=== PATIENT | female | born 1965 | race Caucasian/White ===

== ENCOUNTER → 2016-09-06 | Outpatient (CLI) | payer BC ==
[~2016-09-06] MED LIST: CIPRO 500MG TA500 MG PO; LEXAPRO20 MG PO; MOTRIN 600600 MG/TAB PO; TYLENOL 500MG500 MG PO; XANAX 0.5MG0.5 MG PO
== END ==
LOC: BHSO 15:17
DX: F33.42 Major depressive disorder, recurrent, in full remission (principal)

== ENCOUNTER → 2016-11-20 | Outpatient (CLI) | payer BC ==
[2016-11-20 17:25] LABS: BASO # 0.1 (0.0-0.2); BASO % 1.3 % (0.0-2.0); EOS # 0.2 (0.0-0.7); EOS % 3.8 % (0-4.0); GRAN # 3.7 (1.4-6.5); GRAN % 60.9 % (42.2-75.2); HEMOGLOBIN 13.6 g/dl (12.5-16.0); LYMPH # 1.6 (1.2-3.4); LYMPH % 25.4 % (20.0-51.0); MEAN CELL VOLUME 91 fl (80.0-100.0); MEAN CORPUSCULAR HEMOGLOBIN 32 pg (27.0-31.0); MEAN CORPUSCULAR HGB CONC 36 g/dl (33.0-37.0); MEAN PLATELET VOLUME 9.7 fl (7.4-10.4); MONO # 0.5 (0.1-0.6); MONO % 8.3 % (1.7-9.3); PLATELET COUNT 349 K/mm3 (130-400); REDCELL DISTRIBUTION WIDTH-CV 12.2 % (11.5-14.5); WHITE BLOOD COUNT 6.1 K/mm3 (4.8-10.8)
[2016-11-20 17:31] LABS: ALBUMIN 4.3 gm/dL (3.5-5.0); BILIRUBIN,TOTAL 0.4 mg/dL (0.0-1.0); CALCIUM 9.2 mg/dL (8.4-10.2); CREATININE, serum 0.72 mg/dL (0.52-1.25); POTASSIUM 3.8 mmol/L (3.4-5.0); TOTAL PROTEIN 7.5 gm/dL (6.4-8.2)
[2016-11-20 19:04] LABS: CHLAMYDIA/TRACH by PCR Female NOT DETECTED; NEISSERIA GON by PCR Female NOT DETECTED
== END ==
LOC: COL.LAB 15:52
PROVIDERS: Family Medicine
DX: Z01.419 Encounter for gynecological examination (general) (routine) without abnormal findings (principal)

== ENCOUNTER → 2016-11-26 | Outpatient (CLI) | payer BC ==
[2016-11-26 12:24] LABS: PH 9 (5-8); SQUAMOUS EPITHELIAL 0-2 /hpf; URINE APPEARANCE Cloudy; URINE BACTERIA None Seen /hpf; URINE BILIRUBIN Negative (NEGATIVE); URINE BLOOD 2+ (NEGATIVE); URINE COLOR Yellow; URINE GLUCOSE Negative (NEGATIVE); URINE KETONE Negative (NEGATIVE); URINE RBC >50 /hpf; URINE UROBILINOGEN Negative (NEGATIVE); URINE WBC >50 /hpf
== END ==
LOC: COL.LAB 11:42
PROVIDERS: Family Medicine
DX: Z87.440 Personal history of urinary (tract) infections (principal)

== ENCOUNTER → 2016-11-30 | Outpatient (CLI) | payer BC | LOC: BHSO 15:40 | DX: F33.42 Major depressive disorder, recurrent, in full remission (principal) ==

== ENCOUNTER → 2017-06-03 | Outpatient (CLI) | payer BC | LOC: BHSO 13:39 | DX: F33.42 Major depressive disorder, recurrent, in full remission (principal) | CPT/HCPCS: G0463 ==

== ENCOUNTER → 2017-07-30 | Outpatient (CLI) | payer BC | LOC: BHSO 14:41 | DX: F33.1 Major depressive disorder, recurrent, moderate (principal) | CPT/HCPCS: G0463 ==

== ENCOUNTER → 2017-09-26 | Outpatient (CLI) | payer BC | LOC: BHSO 16:26 | DX: F33.42 Major depressive disorder, recurrent, in full remission (principal) | CPT/HCPCS: G0463 ==

== ENCOUNTER → 2017-10-08 | Outpatient (CLI) | payer BC ==
[2017-10-08 16:14] LABS: BASO # 0.1 (0.0-0.2); BASO % 0.7 % (0.0-2.0); BILIRUBIN,TOTAL 0.6 mg/dL (0.0-1.0); CALCIUM 9.2 mg/dL (8.4-10.2); CHOLESTEROL RISK RATIO 4.2; CREATININE, serum 0.72 mg/dL (0.52-1.25); EOS # 0.3 (0.0-0.7); EOS % 4.6 % (0-4.0); GRAN % 73.1 % (42.2-75.2); HEMOGLOBIN 13.4 g/dl (12.5-16.0); MEAN CELL VOLUME 91 fl (80.0-100.0); MEAN CORPUSCULAR HEMOGLOBIN 31 pg (27.0-31.0); MEAN CORPUSCULAR HGB CONC 34 g/dl (33.0-37.0); MEAN PLATELET VOLUME 9.3 fl (7.4-10.4); MONO # 0.5 (0.1-0.6); MONO % 7.2 % (1.7-9.3); PLATELET COUNT 299 K/mm3 (130-400); POTASSIUM 4.2 mmol/L (3.4-5.0); RED BLOOD COUNT 4.29 M/mm3 (4.10-5.30); REDCELL DISTRIBUTION WIDTH-CV 12.4 % (11.5-14.5); TOTAL PROTEIN 7.5 gm/dL (6.4-8.2)
[2017-10-08 16:44] LABS: TSH w REFLEX 3.66 uIU/mL (0.465-4.680)
== END ==
LOC: COL.LAB 09:26
PROVIDERS: Family Medicine
DX: Z01.419 Encounter for gynecological examination (general) (routine) without abnormal findings (principal); Z13.220 Encounter for screening for lipoid disorders; Z13.29 Encounter for screening for other suspected endocrine disorder

== ENCOUNTER → 2017-11-29 | Outpatient (CLI) | payer BC | LOC: BHSO 15:45 | DX: F33.41 Major depressive disorder, recurrent, in partial remission (principal) | CPT/HCPCS: G0463 ==

== ENCOUNTER → 2018-02-28 | Outpatient (CLI) | payer BC | LOC: BHSO 16:07 | DX: F33.42 Major depressive disorder, recurrent, in full remission (principal) | CPT/HCPCS: G0463 ==

== ENCOUNTER → 2018-03-28 | Outpatient (CLI) | payer BC | LOC: BHSO 15:41 | DX: F41.0 Panic disorder [episodic paroxysmal anxiety] (principal) | CPT/HCPCS: G0463 ==

== ENCOUNTER → 2018-04-23 | Outpatient (CLI) | payer BC | LOC: BHSO 11:30 | DX: F33.2 Major depressive disorder, recurrent severe without psychotic features (principal) | CPT/HCPCS: G0463 ==

== ENCOUNTER → 2018-04-25 | Outpatient (CLI) | payer BC | LOC: BHSO 09:47 | DX: F33.1 Major depressive disorder, recurrent, moderate (principal) ==

== ENCOUNTER → 2018-05-06 | Outpatient (CLI) | payer BC | LOC: BHSO 15:36 | DX: F33.0 Major depressive disorder, recurrent, mild (principal) | CPT/HCPCS: G0463 ==

== ENCOUNTER → 2018-05-15 | Outpatient (CLI) | payer BC | LOC: BHSO 15:50 | DX: F33.1 Major depressive disorder, recurrent, moderate (principal) ==

== ENCOUNTER → 2018-05-29 | Outpatient (CLI) | payer BC | LOC: BHSO 15:45 | DX: F33.1 Major depressive disorder, recurrent, moderate (principal) ==

== ENCOUNTER → 2018-06-12 | Outpatient (CLI) | payer BC | LOC: BHSO 15:56 | DX: F33.1 Major depressive disorder, recurrent, moderate (principal) ==

== ENCOUNTER → 2018-06-20 | Outpatient (CLI) | payer BC | LOC: BHSO 15:25 | DX: F33.41 Major depressive disorder, recurrent, in partial remission (principal) | CPT/HCPCS: G0463 ==

== ENCOUNTER → 2018-07-03 | Outpatient (CLI) | payer BC | LOC: BHSO 15:43 | DX: F33.1 Major depressive disorder, recurrent, moderate (principal) ==

== ENCOUNTER → 2018-07-17 | Outpatient (CLI) | payer BC | LOC: BHSO 15:48 | DX: F33.1 Major depressive disorder, recurrent, moderate (principal) ==

== ENCOUNTER → 2018-08-22 | Outpatient (CLI) | payer BC | LOC: BHSO 15:20 | DX: F41.1 Generalized anxiety disorder (principal) | CPT/HCPCS: G0463 ==

== ENCOUNTER → 2018-10-03 | Outpatient (CLI) | payer BC | LOC: BHSO 16:22 | DX: F41.1 Generalized anxiety disorder (principal) ==

== ENCOUNTER → 2018-11-21 | Outpatient (CLI) | payer BC | LOC: BHSO 14:50 | DX: F33.42 Major depressive disorder, recurrent, in full remission (principal) | CPT/HCPCS: G0463 ==

== ENCOUNTER → 2019-02-13 | Outpatient (CLI) | payer BC | LOC: BHSO 15:50 | DX: F33.42 Major depressive disorder, recurrent, in full remission (principal) | CPT/HCPCS: G0463 ==

== ENCOUNTER → 2019-08-12 | Outpatient (CLI) | payer OTHER | LOC: BHSO 08:38 | DX: F33.42 Major depressive disorder, recurrent, in full remission (principal) | CPT/HCPCS: G0463 ==

== ENCOUNTER → 2021-08-09 | Outpatient (CLI) | payer OTHER ==
[~2021-08-09] MED LIST changes: +NORCO 325 MG-51 TAB PO; +PERCOCET 325 MG1 TA2 PO
== END ==
LOC: MC.RAD 06:54
DX: Z12.31 Encounter for screening mammogram for malignant neoplasm of breast (principal)